=== PATIENT | female | born 1950 ===

== ENCOUNTER 2017-01-21 17:01 | Emergency (ER) | payer BC ==
[2017-01-21 17:24] VITALS: BP 143/85
--- NOTE | 2017-01-21 18:26 | ED ---
Respiratory - HPI Summary HPI Summary: 66 F WITH COUGH, CHEST CONGESTION X 5 DAYS, GETTING WORSE. POSITIVE FOR YELLOW SPUTUM AND FEVER. - History of Current Complaint Chief Complaint: UCRespiratory Stated Complaint: URI Time Seen by Provider: 01/21/17 18:15 Hx Obtained From: Patient Onset/Duration: Lasting Days, Still Present Timing: Constant Initial Severity: Mild Current Severity: Moderate Character: Cough (Productive) Sputum Amount: Small Sputum Color: Yellow Aggravating Factor(s): URI Associated Signs and Symptoms: Fever - Allergy/Home Medications Allergies/Adverse Reactions: Allergies Allergy/AdvReac Type Severity Reaction Status Date / Time Sulfa Antibiotics Allergy Rash Verified 01/21/17 17:20 PMH/Surg Hx/FS Hx/Imm Hx Musculoskeletal History: Reports: Hx Tendonitis - RIGHT HIP Denies: Hx Rheumatoid Arthritis, Hx Osteoporosis Sensory History: Reports: Hx Cataracts - BILAT., Hx Contacts or Glasses - GLASSES Denies: Hx Hearing Aid Opthamlomology History: Reports: Hx Cataracts - BILAT., Hx Contacts or Glasses - GLASSES Psychiatric History: Reports: Hx Anxiety - NO MEDS - Cancer History Hx Chemotherapy: No Hx Radiation Therapy: No - Surgical History Surgery Procedure, Year, and Place: breast bx cataracs Hx Anesthesia Reactions: No Infectious Disease History: No Infectious Disease History: Denies: Hx Clostridium Difficile, Hx Hepatitis, Hx Human Immunodeficiency Virus (HIV), Hx of Known/Suspected MRSA, Hx Shingles, Hx Tuberculosis, Hx Known/ Suspected VRE, Hx Known/Suspected VRSA, History Other Infectious Disease, Traveled Outside the [place] in Last 30 Days - Social History Alcohol Use: Occasionally Alcohol Amount: WINE ON OCCASION Substance Use Type: Reports: None Smoking Status (MU): Never Smoked Tobacco Review of Systems Positive: Fever, Chills Eyes: Negative Positive: Nasal Discharge Negative: Chest Pain Positive: Shortness Of Breath, Cough Gastrointestinal: Negative Genitourinary: Negative Musculoskeletal: Negative Skin: Negative Neurological: Negative Psychological: Normal All Other Systems Reviewed And Are Negative: Yes Physical Exam Triage Information Reviewed: Yes Vital Signs On Initial Exam: Initial Vitals Temp Pulse Resp BP Pulse Ox 99.9 F 66 16 143/85 100 01/21/17 17:21 01/21/17 17:21 01/21/17 17:21 01/21/17 17:21 01/21/17 17:21 Vital Signs Reviewed: Yes Appearance: Positive: Ill-Appearing - MILD Skin: Positive: Warm, Skin Color Reflects Adequate Perfusion Eyes: Positive: Normal, EOMI, PAUL[place] ENT: Positive: Pharyngeal erythema, Nasal congestion, TMs normal Neck: Positive: Supple, Nontender Respiratory/Lung Sounds: Positive: Clear to Auscultation Cardiovascular: Positive: Normal, RRR Musculoskeletal: Positive: Normal. Negative: Edema Left, Edema Right Neurological: Positive: Normal, Sensory/Motor Intact Psychiatric: Positive: Normal AVPU Assessment: Alert Diagnostics - Vital Signs Vital Signs Temp Pulse Resp BP Pulse Ox 01/21/17 17:21 99.9 F 66 16 143/85 100 - Laboratory Lab Statement: Any lab studies that have been ordered have been reviewed, and results considered in the medical decision making process. Disposition - Course Course Of Treatment: DISCUSSED FURTHER SX TREATMENT/ABX TREATMENT. PATIENT PREFERS TO HAVE ABX RX AT THIS TIME. - Diagnoses Provider Diagnoses: Bronchitis Discharge - Discharge Plan Condition: Stable Disposition: HOME Prescriptions: Azithromyxin DENNISE (NF) [Z-Dennise (Zithromax) 250 mg tabs #6] 2 tab PO .TODAY, THEN 1 DAILY #6 tab Patient Education Materials: Acute Bronchitis (ED) Forms: *Work Release Referrals: Cheryl Silva MD [Primary Care Provider] - Additional Instructions: FOLLOW UP WITH YOUR DOCTOR. GET RECHECKED FOR ANY WORSENING OF YOUR CONDITION OR QUESTIONS OR CONCERNS.
== END 2017-01-21 18:35 | disposition home or self-care (01) ==
LOC: UCEAST 17:01
DX: J40 Bronchitis, not specified as acute or chronic (principal); R50.9 Fever, unspecified; Z88.2 Allergy status to sulfonamides
CPT/HCPCS: 99212; G0463